=== PATIENT | male | born 1995 | race Two or more races ===

== ENCOUNTER 2020-06-30 10:27 | Emergency (ER) | payer OTHER ==
[~2020-06-30] VITALS: Ht 167.6 cm; Wt 81.6 kg
[2020-06-30 11:27] VITALS: BP 144/79
[2020-06-30] MEDS ORDERED: IBUPROFEN 800 MG TAB PO ONE (11:30)
[2020-06-30] MEDS ORDERED: METHOCARBAMOL 500 MG TAB PO ONE (11:30)
== END 2020-06-30 11:39 | disposition home or self-care (01) ==
LOC: ER 10:27
DX: S29.012A Strain of muscle and tendon of back wall of thorax, initial encounter (principal); M62.831 Muscle spasm of calf; R51.9 Headache, unspecified; V89.2XXA Person injured in unspecified motor-vehicle accident, traffic, initial encounter; Y93.I9 Activity, other involving external motion; Y92.89 Other specified places as the place of occurrence of the external cause; Y99.8 Other external cause status